=== PATIENT | male | born 1990 ===

== ENCOUNTER 2018-01-17 11:30 | Emergency (ER) | payer OTHER ==
[2018-01-17 11:37] VITALS: BMI 32.1
[2018-01-17 11:38] VITALS: BP 125/78; PULSE 79; RESP 16; TEMP 98.1; O2SAT 98
[2018-01-17] MEDS ORDERED: Sodium Chloride 0.9% 1,000 ML IV STA (12:11)
--- NOTE | 2018-01-17 12:17 | ED PDOC ---
HPI: Abdomen Time Seen by Provider: 01/17/18 11:37 Chief Complaint (Nursing): Abdominal Pain History Per: Patient History/Exam Limitations: no limitations Onset/Duration Of Symptoms: Hrs Current Symptoms Are (Timing): Intermittent Episodes Severity: Moderate Pain Scale Rating Of: 6 Location Of Pain/Discomfort: Other (b/l Flank R>L) Quality Of Discomfort: Sharp Associated Symptoms: denies: Fever, Chills, Nausea, Vomiting Exacerbating Factors: None Alleviating Factors: None Last Bowel Movement: Today Additional Complaint(s): CC: sharp pain with urination HPI: 27 YO Male with PMHx of renal stones and horseshoe kidney presents to [facility] ED for pain with sharp urination and b/l flank pain. Pt stats that his symptoms started last night when he urinated. He felt a sharp pain with urination that radiated from his R flank area. Pain resolved after urination, but pt had a subsequent episode with urination this AM with b/l flank pain that started again this AM. Pain is sharp in nature, on/off with urination, flank pain is achy and persistent. Denies palptatations, n/v/d/c, chills and fever. PMD: Dr. Ramirez PMHx: renal stones, horseshoe kidney SurgHx: tonsillectomy FH: Hepatitis in mother and gout in father SH: denies smoking, ETOH and illicit drug use Allergies: NKDA Meds: none Past Medical History Vital Signs: Last Vital Signs Temp 98.1 F 01/17/18 11:37 Pulse 79 01/17/18 11:37 Resp 16 01/17/18 11:37 BP 125/78 01/17/18 11:37 Pulse Ox 98 01/17/18 16:46 - Surgical History Surgical History: No Surg Hx - Family History Family History: States: Other - Living Arrangements Living Arrangements: With Family (with ) - Social History Current smoker - smoking cessation education provided: No Alcohol: None Drugs: Denies - Home Medications Home Medications: Ambulatory Orders Medication Instructions Recorded Cefuroxime Axetil [Cefuroxime] 500 mg PO BID 10 Days #20 tablet 01/17/18 Naproxen 500 mg PO BID PRN #15 tab 01/17/18 Tamsulosin [Flomax] 0.4 mg PO DAILY #20 cap 01/17/18 - Allergies Allergies/Adverse Reactions: Allergies Allergy/AdvReac Type Severity Reaction Status Date / Time No Known Allergies Allergy Verified 01/17/18 12:10 Review of Systems Constitutional: Negative for: Fever, Chills Cardiovascular: Negative for: Chest Pain, Palpitations Respiratory: Negative for: Cough, Shortness of Breath Gastrointestinal: Positive for: Diarrhea, Other (flank pain b/l ). Negative for : Nausea, Vomiting, Abdominal Pain Genitourinary Male: Positive for: Dysuria. Negative for: Frequency, Hematuria Skin: Negative for: Rash, Lesions Neurological: Negative for: Weakness, Numbness Physical Exam - Physical Exam Appears: Positive for: No Acute Distress Head Exam: Positive for: ATRAUMATIC Skin: Positive for: Normal Color Cardiovascular/Chest: Positive for: Regular Rate, Rhythm. Negative for: Murmur Respiratory: Positive for: Normal Breath Sounds. Negative for: Wheezing Gastrointestinal/Abdominal: Positive for: Normal Exam, Bowel Sounds, Soft, Tenderness (mild tenderness in LLQ). Negative for: Distended, Guarding Back: Positive for: Normal Inspection, L CVA Tenderness. Negative for: R CVA Tenderness Extremity: Positive for: Normal ROM. Negative for: Tenderness, Pedal Edema Neurologic/Psych: Positive for: Alert - Laboratory Results Result Diagrams: 01/17/18 12:40 01/17/18 12:40 - ECG O2 Sat by Pulse Oximetry: 98 - Progress ED Course And Treament: 27 YO Male with sharp pain with urination, and b/l flank pain. -UA, Udip -cbc, bmp -IVF -Toradol, Flomax -Ct abd and pelvis 13:22: pt seen and reevaluated. Pain resolved after meds and IVF Blood work and urine reviewed with pt Blood work wnl UA sig for small blood, RBC 22, small leukes. Pending CT abd and pelvs 14:51--pt seen and reevaluated Ct findings discussed with pt; large 14mm stone seen in the L UPJ Case discussed with butadiene converter utility operator Urology MD Wade. KUB discussed with pt, large stone as noted in CT Per urologist, IV rocephin 1g, d/c home with Cefpin 500mg BID x 10 days and Flomax PO daily. Pt to follow up in clinic as outpatient. Plan discussed with patient. Disposition - Clinical Impression Clinical Impression: Renal calculus - Patient ED Disposition Is Patient to be Admitted: No - Disposition Referrals: Alexsander Salinas MD [Staff Provider] - Disposition Time: 16:53 Condition: STABLE Additional Instructions: Please follow up in Urologist office in 1 week Follow up with PMD Please take antibiotics as prescribed Return to ED if symptoms worsens, fever over 100.4, chills. Prescriptions: Cefuroxime Axetil [Cefuroxime] 500 mg PO BID 10 Days #20 tablet Naproxen 500 mg PO BID PRN #15 tab PRN Reason: Pain, Moderate (4-7) Tamsulosin [Flomax] 0.4 mg PO DAILY #20 cap Instructions: Kidney Stones (DC), Renal Colic (DC) Forms: [facility] ([place])
[2018-01-17 12:47] LABS: BASO # 0.1 K/uL (0.0-0.2); BASO % 1.2 % (0.0-2.0); EOS # 0.1 K/uL (0.0-0.7); EOS % 1.7 % (0.0-4.0); HEMOGLOBIN 14.8 g/dL (12.0-18.0); LYMPH # 3.3 K/uL (1.0-4.3); LYMPH % 48.4 % (20.0-40.0); MEAN CELL VOLUME 80.2 fl (80.0-94.0); MEAN CORPUSCULAR HEMOGLOBIN 27.9 pg (27.0-31.0); MEAN CORPUSCULAR HGB CONC 34.7 g/dL (33.0-37.0); MEAN PLATELET VOLUME 6.9 fl (7.2-11.7); MONO # 0.8 K/uL (0.0-0.8); NEUT # 2.5 K/uL (1.8-7.0); NEUT % 36.7 % (50.0-75.0); NRBC % 0.1 % (0.0-0.0); RBC 5.3 Mil/uL (4.40-5.90); RED CELL DISTRIBUTION WIDTH 13.4 % (11.5-14.5); WHITE BLOOD COUNT 6.8 K/uL (4.8-10.8)
[2018-01-17 12:53] LABS: SQUAMOUS EPITHIAL < 1 /hpf (0-5); URINE BILIRUBIN NEGATIVE (NEGATIVE); URINE BLOOD SMALL (NEGATIVE); URINE CLARITY SLIGHTY-CLOUDY (Clear); URINE COLOR YELLOW (YELLOW); URINE GLUCOSE (UA) NEG (Normal); URINE LEUKOCYTE ESTERASE SMALL Leu/uL (Negative); URINE PROTEIN 30 mg/dL (NEGATIVE); URINE UROBILINOGEN 0.2-1.0 mg/dL (0.2-1.0)
[2018-01-17 12:54] LABS: BLOOD UREA NITROGEN 12 mg/dl (9-20); CALCIUM 9.5 mg/dL (8.4-10.2); GFR AFRICAN-AMERICAN > 60; GFR NON-AFRICAN AMERICAN > 60
--- NOTE | 2018-01-17 14:13 | CT ---
Date of service: 01/17/2018 PROCEDURE: CT abdomen pelvis dated 01/17/2018. HISTORY: History of stone with flank pain COMPARISON: No prior TECHNIQUE: Contiguous helical/transaxial images of the abdomen and pelvis. No IV oral contrast given. 2D coronal and sagittal reformats generated. This CT exam was performed using one or more of the following dose reduction techniques: Automated exposure control, adjustment of the mA and/or kV according to patient size, and/or use of iterative reconstruction technique. Radiation dose: Total exam DLP = 935.88 mGy-cm. FINDINGS: LOWER THORAX: Heart size within range of normal. No significant pericardial effusion. There is a tiny hiatal hernia. Lung bases clear clear. No focal consolidation. No effusion or basilar pneumothorax. LIVER: Liver exhibits normal size. No hepatic mass collection or calcification identified. Unremarkable. No gross lesion or ductal dilatation. GALLBLADDER AND BILE DUCTS: Gallbladder is physiologically distended. No evidence of intraluminal gallbladder calculi. PANCREAS: Unremarkable. No mass. No ductal dilatation. SPLEEN: Spleen exhibits normal size and attenuation pattern. There are no hepatic masses collections or calcifications. ADRENALS: No adrenal lesions. KIDNEYS AND URETERS: Horseshoe kidney. There are multiple of tiny calculi seen in the lower pole collecting system right kidney and renal pelvis region with a large calculus in the left UPJ that measures nearly 1.4 cm. The ureter distal to this appears collapsed. BLADDER: Urinary bladder is incompletely distended which may account for slight thick-walled appearance. Muscular hypertrophy may contribute. Clinical correlation with urinalysis recommended. REPRODUCTIVE: Prostate gland measures approximately 3.8 cm in transverse dimension. APPENDIX: Normal-appearing appendix best seen on axial sequence image number [id number]. BOWEL: Evaluation of the bowel is somewhat limited due to the lack of oral contrast. Stomach is relatively collapsed. . Few slightly minimally and slightly thick-walled loops small bowel left upper abdomen nonspecific. Stool and air seen throughout the large bowel. . PERITONEUM: Unremarkable. No fluid collection. No free air. There is a small fat containing umbilical hernia. LYMPH NODES: Unremarkable. No enlarged lymph nodes. VASCULATURE: Unremarkable. No aortic aneurysm. BONES: No fracture or destructive lesion. OTHER FINDINGS: None. IMPRESSION: There is a horseshoe kidney with a large approximately 14 mm calculus in the left UPJ region with dilatation of the left renal pelvis of. Multiple small calculi also seen in the lower pole collecting system left kidney.
[2018-01-17] MEDS ORDERED: cefTRIAXone (Rocephin) 1 gm Inj ONE (15:12)
--- NOTE | 2018-01-17 16:00 | RAD ---
Date of service: 01/17/2018 HISTORY: renal stone COMPARISON: Same-day CT abdomen and pelvis 01/17/2018 1329 hours FINDINGS: BOWEL: Stool retention. . No bowel obstruction. The CT depicted large left ureteral pelvic junction regional obstructing calculus in a horseshoe kidney measures 2.7 x 1.6 c cm m on this exam at the L2-3 level. No additional more distal ureteral calculi seen. Some of the additional much smaller CT depicted left-sided calcifications (more flake like) within the collecting system may be those noted just inferior to this large dominant left UPJ junctional calculus BONES: Normal. OTHER FINDINGS: None. IMPRESSION: KUB showing the previously referenced large left ureteral pelvic junctional obstructing calculus in knee horseshoe kidney on this exam this stone measures 2.7 x 1.6 cm
== END 2018-01-17 17:00 | disposition home or self-care (01) ==
LOC: H.ER 11:30
DX: N20.0 Calculus of kidney (principal); Z87.442 Personal history of urinary calculi
CPT/HCPCS: 74018; 74176; 80048; 81003; 85025; 96361; 96365; 96375; 99283; J0696; J1885; J7030

== ENCOUNTER 2018-06-06 22:01 | Emergency (ER) | payer OTHER ==
[2018-06-06 22:01] VITALS: BMI 32.1
[2018-06-06 22:21] VITALS: O2SAT 99
--- NOTE | 2018-06-06 22:59 | ED PDOC ---
HPI: Male Pain Time Seen by Provider: 06/06/18 22:48 Chief Complaint (Nursing): Male Genitourinary History Per: Patient History/Exam Limitations: no limitations Onset/Duration Of Symptoms: Other (1 month) Severity: Moderate Pain Scale Rating Of: 4 Quality Of Discomfort: Dull Additional Complaint(s): Patient reports left flank pain for 1 month. Patient reports having lithotripsy for renal stones [address] Al. Pain continues for [address] Al instructed him to go to ER if pain is getting worse. Denies fever, vomiting, or dysuria. Past Medical History Reviewed: Historical Data, Nursing Documentation, Vital Signs Vital Signs: Last Vital Signs Temp 98.8 F 06/06/18 22:17 Pulse 79 06/06/18 22:17 Resp 20 06/06/18 22:17 BP 112/72 06/06/18 22:17 Pulse Ox 99 06/06/18 22:17 - Medical History Other PMH: Kidney stone - Surgical History Surgical History: No Surg Hx - Family History Family History: States: No Known Family Hx - Home Medications Home Medications: Ambulatory Orders Medication Instructions Recorded Cefuroxime Axetil [Cefuroxime] 500 mg PO BID 10 Days #20 tablet 01/17/18 RX: Naproxen 500 mg PO BID PRN #15 tab 01/17/18 Tamsulosin [Flomax] 0.4 mg PO DAILY #20 cap 01/17/18 - Allergies Allergies/Adverse Reactions: Allergies Allergy/AdvReac Type Severity Reaction Status Date / Time No Known Allergies Allergy Verified 01/17/18 12:10 Review of Systems ROS Statement: Except As Marked, All Systems Reviewed And Found Negative Physical Exam - Reviewed Nursing Documentation Reviewed: Yes Vital Signs Reviewed: Yes - Physical Exam Appears: Positive for: Well, Non-toxic, No Acute Distress Head Exam: Positive for: ATRAUMATIC, NORMAL INSPECTION Skin: Positive for: Normal Color, Warm, Dry Eye Exam: Positive for: EOMI Cardiovascular/Chest: Positive for: Regular Rate, Rhythm Respiratory: Positive for: Normal Breath Sounds Gastrointestinal/Abdominal: Positive for: Soft. Negative for: Tenderness Back: Positive for: L CVA Tenderness. Negative for: R CVA Tenderness Neurologic/Psych: Positive for: Alert, Oriented - Laboratory Results Result Diagrams: 06/06/18 23:20 06/06/18 23:20 - ECG O2 Sat by Pulse Oximetry: 99 Medical Decision Making Medical Decision Making: Left flank pain back pain Diff include nephrolithiasis, UTI, and MS pain Plan Labs CT abd w/o contrast UA reassess Disposition - Clinical Impression Clinical Impression: Kidney stone - Patient ED Disposition Is Patient to be Admitted: Transfer of Care Counseled Patient/Family Regarding: Studies Performed, Diagnosis - Disposition Disposition Time: 23:00 Condition: STABLE Instructions: Kidney Stones in Adults, Extracorporeal Shock Wave Lithotripsy (DC), Laser Lithotripsy for Kidney Stones Patient Signed Over To: Jc López
--- NOTE | 2018-06-06 23:17 | ED PDOC ---
- Laboratory Results Result Diagrams: 06/06/18 23:20 06/06/18 23:20 - ECG O2 Sat by Pulse Oximetry: 99 Medical Decision Making Medical Decision Makin Patient care endorsed from Dr. Lindsay to this provider pending CT, labs, and reevaluation. 0037 CT FINDINGS: The visualized lung bases are unremarkable. Normal unenhanced liver. Normal gallbladder and extrahepatic biliary system. Normal unenhanced spleen. Normal pancreas. Normal bilateral adrenal glands. Horseshoe kidney is noted. Left renal stones are unchanged ranging in size between 3 and 7 mm. Mildly obstructing stone of the left ureteropelvic junction is again noted measuring 1.3x1.1 cm. Interval appearance of mild diffuse thickening of the left renal pelvis. Unchanged mild fullness of the left renal pelvis. Normal size of the right kidney. There is no right renal mass. There are no right renal calculi. There is no right hydronephrosis. Normal visualized right ureter. Normal size of the left kidney. There is no left renal mass. Normal visualized left ureter. Normal visualized stomach. Normal small intestine. Uncomplicated diverticulosis of the colon. The appendix is visualized and appears normal. There is no demonstrated peritoneal fluid. Normal abdominal aorta. Normal inferior vena cava. Normal retroperitoneum. Normal urinary bladder. There is no pelvic mass lesion or lymphadenopathy. There is no pelvic fluid. Normal abdominal wall. Mild diffuse spondylosis. IMPRESSION: Horseshoe kidney, unchanged. Left staghorn calculus, predominantly at the level of the left ureteropelvic junction. Unchanged in size. Unchanged fullness of the left collecting system. Interval appearance of mild diffuse thickening of the left renal pelvis. Please correlate with urinalysis to exclude infection. 0052 Patient has scheduled follow up with Dr. Pantoja. Stable for discharge with diagnosis of kidney stones. Scribe Attestation: Documented by Miranda Louis, acting as a scribe for Jc López MD. Provider Scribe Attestation: All medical record entries made by the Scribe were at my direction and personally dictated by me. I have reviewed the chart and agree that the record accurately reflects my personal performance of the history, physical exam, medical decision making, and the department course for this patient. I have also personally directed, reviewed, and agree with the discharge instructions and disposition. Disposition Counseled Patient/Family Regarding: Studies Performed, Diagnosis, Need For Followup - Clinical Impression Clinical Impression: Kidney stone - POA Present On Arrival: None - Disposition Disposition: Routine/Home Disposition Time: 00:53 Condition: FAIR Instructions: Kidney Stones in Adults, Extracorporeal Shock Wave Lithotripsy (DC), Laser Lithotripsy for Kidney Stones Forms: [facility] ([place])
[2018-06-06 23:36] LABS: BASO # 0.1 K/uL (0.0-0.2); BASO % 1.2 % (0.0-2.0); EOS # 0.2 K/uL (0.0-0.7); EOS % 1.8 % (0.0-4.0); HEMOGLOBIN 14.9 g/dL (12.0-18.0); LYMPH # 4.4 K/uL (1.0-4.3); LYMPH % 49.1 % (20.0-40.0); MEAN CELL VOLUME 80.6 fl (80.0-94.0); MEAN CORPUSCULAR HEMOGLOBIN 27.7 pg (27.0-31.0); MEAN CORPUSCULAR HGB CONC 34.4 g/dL (33.0-37.0); MEAN PLATELET VOLUME 6.7 fl (7.2-11.7); MONO # 1.2 K/uL (0.0-0.8); MONO % 12.8 % (0.0-10.0); NEUT # 3.2 K/uL (1.8-7.0); NEUT % 35.1 % (50.0-75.0); RBC 5.38 Mil/uL (4.40-5.90); RED CELL DISTRIBUTION WIDTH 13.1 % (11.5-14.5)
[2018-06-06 23:44] LABS: BLOOD UREA NITROGEN 13 mg/dl (9-20); CALCIUM 9.8 mg/dL (8.4-10.2); GFR NON-AFRICAN AMERICAN > 60
[2018-06-07 00:04] LABS: URINE BILIRUBIN NEGATIVE (NEGATIVE); URINE BLOOD SMALL (NEGATIVE); URINE CALCIUM OXALATE CRYSTALS OCC /hpf (<OCC); URINE CLARITY SLIGHTY-CLOUDY (Clear); URINE COLOR YELLOW (YELLOW); URINE GLUCOSE (UA) NEG (Normal); URINE LEUKOCYTE ESTERASE TRACE Leu/uL (Negative); URINE PROTEIN 30 mg/dL (NEGATIVE); URINE UROBILINOGEN 0.2-1.0 mg/dL (0.2-1.0)
[2018-06-07 02:02] VITALS: BP 122/68; PULSE 78; RESP 18; TEMP 98.2
--- NOTE | 2018-06-07 10:25 | CT ---
Date of service: 06/06/2018 PROCEDURE: CT Abdomen and Pelvis without intravenous contrast HISTORY: back pain left flank pain COMPARISON: Comparison is made with 01/17/2018 TECHNIQUE: Axial and reformatted coronal and sagittal CT images of the abdomen and pelvis were obtained without IV or oral contrast administration.. Contrast dose: 0 Radiation dose: Total exam DLP = 634.39 mGy-cm. This CT exam was performed using one or more of the following dose reduction techniques: Automated exposure control, adjustment of the mA and/or kV according to patient size, and/or use of iterative reconstruction technique. FINDINGS: LOWER THORAX: Unremarkable. LIVER: Unremarkable. No gross lesion or ductal dilatation. GALLBLADDER AND BILE DUCTS: The gallbladder is contracted. No evidence of acute cholecystitis. PANCREAS: Unremarkable. No gross lesion or ductal dilatation. SPLEEN: Unremarkable. ADRENALS: Unremarkable. No mass. KIDNEYS AND URETERS: Horseshoe kidneys again noted. Interval increase in the size of the left renal calculus which appears now has a shape of staghorn calculus since the previous exam. There is mild left hydronephrosis noted. Otherwise no significant interval changes in the kidneys. VASCULATURE: Unremarkable. No aortic aneurysm. No aortic atherosclerotic calcification or mural plaque present. BOWEL: The stomach is mildly distended. No obstruction. No gross mural thickening. APPENDIX: Unremarkable. Normal appendix. PERITONEUM: Unremarkable. No free fluid. No free air. LYMPH NODES: Unremarkable. No enlarged lymph nodes. BLADDER: Unremarkable. REPRODUCTIVE: Unremarkable. BONES: No acute fracture. OTHER FINDINGS: None. IMPRESSION: Horseshoe kidneys. Interval increase in the size left renal pelvic staghorn calculus/calculi associated with mild hydronephrosis. Mild thickening of the left renal collecting system wall suspicious for possible infectious process. Otherwise no significant interval changes. Preliminary report was submitted by [facility] contains concordant findings.
== END 2018-06-07 00:48 | disposition home or self-care (01) ==
LOC: H.ER 22:01
DX: N20.0 Calculus of kidney (principal); Q63.1 Lobulated, fused and horseshoe kidney